=== PATIENT | female | born 1950 | race Two or more races ===

== ENCOUNTER 2020-08-06 06:00 | Day surgery (SDC) | payer OTHER ==
[~2020-08-06 06:00] MED LIST: CRESTOR10 MG PO; LAMISIL125 ML
[2020-08-06] MEDS ORDERED: DUI500 PO (13:17)
[2020-08-06] MEDS ORDERED: ULTRACET PO (13:17)
== END 2020-08-06 16:20 | disposition home or self-care (01) ==
LOC: CIR.AMB 06:00
PROVIDERS: ATTEND Orthopaedic Surgery
DX: S83.242A Other tear of medial meniscus, current injury, left knee, initial encounter (principal); S83.272A Complex tear of lateral meniscus, current injury, left knee, initial encounter; M67.362 Transient synovitis, left knee; M94.262 Chondromalacia, left knee; Z20.822 Contact with and (suspected) exposure to COVID-19